=== PATIENT | male | born 1995 | race African-American/Black ===

== ENCOUNTER 2025-01-21 08:28 | Outpatient (CLI) | payer OTHER | END 2025-01-21 08:29 | disposition home or self-care (01) | LOC: RAD 08:28 | PROVIDERS: ATTEND Surgery | DX: S22.42XD Multiple fractures of ribs, left side, subsequent encounter for fracture with routine healing (principal); J98.11 Atelectasis; J94.8 Other specified pleural conditions | CPT/HCPCS: 71046 ==